=== PATIENT | male | born 1985 | race Asian ===

== ENCOUNTER 2020-03-31 02:53 | Emergency (ER) | payer MEDICAID ==
[~2020-03-31] VITALS: Ht 177.8 cm; Wt 81.8 kg
[2020-03-31 02:57] VITALS: TEMP 98.4
[2020-03-31] MEDS ORDERED: XANAX 1MG1 MG PO (03:24)
[2020-03-31 03:42] LABS: HEMATOCRIT 46.2 % (42.0-52.0); HEMOGLOBIN 15.3 g/dl (13.5-18.0); MEAN CELL VOLUME 86 fl (80.0-100.0); MEAN CORPUSCULAR HEMOGLOBIN 29 pg (27.0-31.0); MEAN CORPUSCULAR HGB CONC 33 g/dl (33.0-37.0); MEAN PLATELET VOLUME 9.3 fl (7.4-10.4); PLATELET COUNT 340 K/mm3 (130-400); RED BLOOD COUNT 5.37 M/mm3 (4.20-5.60); REDCELL DISTRIBUTION WIDTH-CV 12.9 % (11.5-14.5)
[2020-03-31 03:53] LABS: ALBUMIN 4.6 gm/dL (3.5-5.0); BILIRUBIN,TOTAL 0.4 mg/dL (0.0-1.0); CALCIUM 8.8 mg/dL (8.4-10.2); CREATININE, serum 0.72 (0.66-1.25); MAGNESIUM 1.9 mg/dL (1.6-2.3); POTASSIUM 3.2 mmol/L (3.4-5.0); TOTAL PROTEIN 7.8 gm/dL (6.4-8.2)
[2020-03-31 04:20] LABS: BAND 4 % (0-10); EOSINOPHIL 6 % (0-4); METAMYELOCYTE 2 % (0-0); NEUTROPHILS 49 % (42.0-75.2); PLATELET ESTIMATE NORMAL (NORMAL)
[2020-03-31 04:23] LABS: LYMPHOCYTE 33 % (20.0-51.0)
[2020-03-31 07:23] VITALS: BP 147/87; PULSE 91
== END 2020-03-31 07:23 | disposition home or self-care (01) ==
LOC: COL.ER 02:53
PROVIDERS: Emergency Medicine
DX: F41.0 Panic disorder [episodic paroxysmal anxiety] (principal); F12.90 Cannabis use, unspecified, uncomplicated; F10.129 Alcohol abuse with intoxication, unspecified
CPT/HCPCS: J1790; J7030